=== PATIENT | female | born 1935 | race Two or more races ===

== ENCOUNTER 2025-01-04 14:50 | Emergency (ER) | payer OTHER ==
[~2025-01-04] VITALS: Ht 152.4 cm; Wt 68.0 kg
[2025-01-04] MEDS ORDERED: SINGULAIR10 MG PO (15:26)
[2025-01-04] MEDS ORDERED: ROSUVASTATIN CAL5 MG PO (15:26)
[2025-01-04] MEDS ORDERED: COZAAR50 MG PO (15:26)
[2025-01-04] MEDS ORDERED: GUAIFENESIN/DEXTROMETHORPHAN 100MG/10ML BLIST.PACK PO ONE ×2 (16:30→16:36)
[2025-01-04] MEDS ORDERED: IPRATROPIUM BROMIDE 0.5 MG/2.5 ML AMPUL.NEB IH ONE ×2 (16:30→16:47)
[2025-01-04 17:01] LABS: BASO % 0.3 % (0.1-1.2); EOS # 0.35 (0.04-0.54); EOS % 4.9 % (0.7-7.0); LYMPH # 2.23 (1.18-3.74); LYMPH % 31.3 % (19.3-53.1); MEAN PLATELET VOLUME 12.20 fl (9.4-12.4); MONO # 0.94 (0.24-0.82); NEUT # 3.58 (1.56-6.13); NEUT % 50.2 % (34.0-71.1); RED CELL DISTRIBUTION WIDTH 13.6 % (11.6-14.4)
[2025-01-04 17:17] LABS: COVID-19 AG NEGATIVE (NEGATIVE); MONO % 13.2 % (4.7-12.5)
[2025-01-04 17:39] LABS: ALT/SGPT 29.0 U/L (12-78); AST/SGOT 19.0 U/L (15-37); BILIRUBIN TOTAL 0.38 mg/dL (0.3-1.2); BUN CREA RATIO 24.0 (7.0-25.0); CREATININE SERUM 0.7 mg/dL (0.55-1.02); GFR 78.79; GLOBULINA 3.5 G/DL (2.4-3.5); GLUCOSE FASTING 93.0 mg/dL (65-100); OSMOLALITY SERUM 288.0 MOSM/KG (275-295)
[2025-01-04] MEDS ORDERED: ZITHROMAX500 MG PO (21:52)
[2025-01-04] MEDS ORDERED: TUSSIN DM LIQU118 ML PO (21:52)
[2025-01-04] MEDS ORDERED: IPRATROPIU0.2 MG/1 M IH (21:52)
== END 2025-01-04 22:19 ==
LOC: ER 14:50
PROVIDERS: Emergency Medicine
DX: J06.9 Acute upper respiratory infection, unspecified (principal); R05.9 Cough, unspecified; Z20.822 Contact with and (suspected) exposure to COVID-19; I10 Essential (primary) hypertension; Z88.2 Allergy status to sulfonamides; Z88.6 Allergy status to analgesic agent; Z91.041 Radiographic dye allergy status